=== PATIENT | female | born 1995 | race Caucasian/White ===

== ENCOUNTER 2018-05-27 13:44 | Outpatient (CLI) | payer OTHER ==
--- NOTE | 2018-05-27 15:23 | ULT ---
PELVIC ULTRASOUND: 05/27/2018 HISTORY: Positive . Evaluate size and dates. FINDINGS: Multiple transabdominal and endovaginal sonographic images of the pelvis are obtained. The uterus measures 12.2 cm x 6.7 cm x 8.2 cm. There is a fluid collection within the endometrial ca nal, which contains both a pole and a yolk sac. Cardiac Doppler demonstrates heart tones with a heart rate of 160 beats per minute. [place]-rump length measures 2.06 cm, corresponding to a gestational age by ultrasound of 8 weeks 5 days with an ROSA MARIA of 01/01/2019. Gestational age by l ast menstrual period is 11 weeks 6 days, which does represent a discrepancy. The gestational sac, with respect to the pole, is mildly prominent, but probably within normal limits, but followup is suggested. There are no findings to suggest a subchorionic hemorrhage. The left ovary measures 2.5 cm x 1.6 cm x 2.3 cm and has a normal sonographic appearance on transabdo kimani imaging. The right ovary is visualized on endovaginal imaging and measures 3.1 cm x 1.9 cm x 2 .1 cm. Doppler evaluation of each ovary with spectral analysis and color-flow evaluation suggests ar terial flow in each ovary. No free fluid is seen in the cul-de-sac. IMPRESSION: 1. Single intrauterine gestation with heart tones documented. Estimated gestational age by me asurement of the crown-rump length is 8 weeks 5 days with an ROSA MARIA of 01/01/2019. 2. Mild prominence of the gestational sac with respect to the size of the pole. This is proba katie within normal limits, but follow-up evaluation is recommended. POS: HUEY
== END 2018-05-27 13:45 | disposition home or self-care (01) ==
LOC: SCSULT 13:44
PROVIDERS: ATTEND Family Medicine
DX: Z34.81 Encounter for supervision of other normal pregnancy, first trimester (principal); Z3A.08 8 weeks gestation of pregnancy
CPT/HCPCS: 76856

== ENCOUNTER 2018-08-18 08:29 | Outpatient (CLI) | payer OTHER ==
--- NOTE | 2018-08-18 09:25 | ULT ---
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 COMPARISON: ultrasound dated May 27, 2018 FINDINGS: Number of gestations: Single. Presentation: Cephalic. Placental location: Anterior Previa: No evidence for previa. Cervical length: 3.1 cm DIEGO: 15.3 cm. heart rate: 153 bpm. Biparietal diameter: 4.82cm, 20 weeks 5 days, Not calculated.. Head circumference: 17.62 cm, 20 weeks 1 day, Not calculated. Abdominal circumference: 14.89 cm, 20 weeks and 2 days, Not calculated. Femoral length: 3.38cm, 20 weeks 5 days, Not calculated. Estimated weight: 348 g +/- 51g 0 lbs. 12 oz. +/- 2 ounces, 33rd percentile SURVEY: head: Normal appearing. Cerebellum: Normal appearing. Cisterna magna: Normal appearing. Lateral ventricles: Normal appearing. 4 chamber heart: Normal appearing.. Stomach: Normal appearing. Kidneys: Normal appearing. Cord insertion: Normal appearing. Bladder: Normal appearing. Spine: Normal appearing. Lips and nose: Normal appearing. Extremities: Normal appearing. Three-vessel CORD: Normal appearing. The average gestational age by ultrasound is 20 weeks 4 dayswith estimated due date of January 01 19. The estimated dates by clinical data is 20 weeks 4 dayswith estimated due date of January 01, 2019. IMPRESSION: 1. Single live intrauterine gestation with size and dates as above.
== END 2018-08-18 08:30 | disposition home or self-care (01) ==
LOC: BICULT 08:29
PROVIDERS: ATTEND Nurse Practitioner
DX: O09.92 Supervision of high risk pregnancy, unspecified, second trimester (principal); Z3A.20 20 weeks gestation of pregnancy
CPT/HCPCS: 76805

== ENCOUNTER 2018-09-27 12:14 | Day surgery (SDC) | payer OTHER ==
[2018-09-27 12:53] VITALS: BP 111/66; TEMP 98.4
[2018-09-27 12:54] VITALS: BMI 29.9
--- NOTE | 2018-09-27 15:08 | ULT ---
ULTRASOUND OBSTETRICAL COMPLETE: DATE: 09/27/2018 HISTORY: 23-year-old female in second trimester of with pelvic pain and mild vaginal bleeding. FINDINGS: number: [place] lie: Cephalic Maternal cervix: 3.4 cm. Closed. Placenta: Anterior. No placenta previa or abruption. Amniotic fluid volume: DIEGO = 12 cm heart rate: 155 bpm The following anatomy is visualized, with no evidence of anomalies: Head, cerebellum, cisterna magna, four-chamber heart, stomach, kidneys, cord insertion, and bladder. biometry: Biparietal diameter (BPD): 6.7 cm 27 w 1 d Head circumference (HC): 24.9 cm 27 w 0 d Abdominal circumference (AC): 22.1 cm 26 w 4 d Femur length (FL): 5.0 cm 27 w 0 d Average ultrasound age (AUA): 27 w 0 d Estimated date of delivery (ROSA MARIA): 12/27/2018 Estimated weight (EFW): 982 g +/- 145 g IMPRESSION: 1) Live early 3rd trimester intrauterine gestation. 2) Estimated gestational age of 27 weeks, 0 days 3) cephalic lie.
--- NOTE | 2018-09-28 07:49 | SS ---
DATE OF ADMISSION: 09/27/2018 DATE OF DISCHARGE: 09/27/2018 REGULAR PHYSICIAN: Devora Joseph MD. EVALUATING PHYSICIAN: Broderick Kevin MD. CHIEF COMPLAINT: Cramping, spotting, loose stool at home. HISTORY OF PRESENT ILLNESS: Ms. Richards is a 23-year-old black, 2, para 0-1-0-1 with an estimated date of confinement of 01/01/2019, who presents complaining of intermittent cramping and loose stools over the last 24 hours. She noticed some spotting when she wiped with the tissue today and came to the hospital. Her care has been with Dr. Joseph and has been without significant complications up to this point. PAST OBSTETRICAL HISTORY: Includes vaginal delivery at 34 weeks in [place]. She is currently on Kaitlyn this . PAST MEDICAL HISTORY: None. PAST SURGICAL HISTORY: None. CURRENT MEDICATIONS: 1. vitamins. 2. [place] as above. ALLERGIES: NO KNOWN ALLERGIES. SOCIAL HISTORY: Denies tobacco, alcohol, or drug use. FAMILY HISTORY: Unremarkable. REVIEW OF SYSTEMS: Denies nausea, vomiting, fever, chills, ruptured membranes, or decreased movement. PHYSICAL EXAMINATION: VITAL SIGNS: Vital signs are stable and she is afebrile in triage. GENERAL: She is an extremely pleasant and in no acute distress. ABDOMEN: Soft, nontender, and gravid. heart rate tracing is stable with small accelerations. There are no decelerations. No uterine contractions or uterine activity is seen. Limited ultrasound is done. A fetus consistent with dates with an anterior placenta is seen. There is no evidence of placenta previa. DIEGO is within normal limits. Her cervix is 3.3 cm in length. PELVIC: A sterile speculum exam was then performed. Her cervix is closed and long. There is no blood or discharge seen in the vagina. ASSESSMENT: 1. A 26-2/7 week intrauterine . 2. No evidence of vaginal bleeding or labor at this time. PLAN: The patient will be dismissed to home. She was given complete labor precautions and was told to continue to follow up with Dr. Joseph each week for her Kaitlyn shot. She voiced understanding of her discharge instructions and was sent home in good condition. Job ID: [id number]
== END 2018-09-27 14:35 | disposition home or self-care (01) ==
LOC: L&D/OP 12:14
PROVIDERS: ATTEND Obstetrics & Gynecology
DX: O99.89 Other specified diseases and conditions complicating pregnancy, childbirth and the puerperium (principal); R10.9 Unspecified abdominal pain; R19.7 Diarrhea, unspecified; O26.852 Spotting complicating pregnancy, second trimester; Z3A.26 26 weeks gestation of pregnancy
CPT/HCPCS: 76815; 99283

== ENCOUNTER 2018-10-20 10:28 | Outpatient (CLI) | payer OTHER ==
--- NOTE | 2018-10-20 11:55 | ULT ---
Exam: OB ultrasound follow-up: COMPARISON: 09/27/2018 HISTORY: growth FINDINGS: Single viable intrauterine fetus in vertex presentation. The placenta is anterior. Amniotic fluid wit hin normal limits. heart rate 135 bpm. Cervical length 3.7 cm. anatomy was not addressed at the time of this exam. biometry: BPD 7.5 cm--30 weeks 2 days Head circumference 27.4 cm--30 weeks 0 days Abdominal circumference 23.5 cm--27 weeks 6 days Femur length 5.6 cm--29 weeks 5 days. IMPRESSION: Single viable intrauterine fetus at 29 weeks 4 days with an ROSA MARIA of 01/01/2019. Estimated weight 1281 g. Approximately 2 weeks discrepancy between abdominal circumference and head circumference, statistical ly, still within upper range of normal variability.
== END 2018-10-20 10:29 | disposition home or self-care (01) ==
LOC: BICULT 10:28
PROVIDERS: ATTEND Nurse Practitioner
DX: O09.92 Supervision of high risk pregnancy, unspecified, second trimester (principal); Z3A.29 29 weeks gestation of pregnancy
CPT/HCPCS: 76816

== ENCOUNTER 2018-12-30 05:36 | Inpatient (IN) | payer OTHER ==
[~2018-12-30 05:36] MED LIST: Butorphanol Tartrate 1 MG/ML VIAL SLOW IVP PRN; HYDROcodone/Acetaminophen 5/325 mg Tablet PO PRN; Ibuprofen 800 MG TAB PO PRN; Lidocaine 1% (PF) 30 ML VIAL SC PRN; NS / Oxytocin 40 units/1000ml 1,000 ML IV PRN; NS w/ Oxytocin 10 units 500 ML IV SCH; Ondansetron PF 4 MG/2 ML Vial IVP PRN; Promethazine HCl 25 MG/ML VIAL IM PRN; hydrALAZINE 20 MG/ML VIAL SLOW IVP PRN
[2018-12-30 12:19] VITALS: BMI 31.3
[2018-12-30] MEDS: Lactated Ringer's 1,000 ML IV SCH ×4 (12:20→23:27)
[2018-12-30 13:21] LABS: Hemoglobin 11.1 g/dL (12.0-16.0); Mean Corpuscular HGB CONC 33.5 g/dL (32.0-36.0); Mean Corpuscular Hemoglobin 22.7 pg (27.0-31.0); Mean Corpuscular Volume 67.8 fL (78.0-98.0); Platelet Count 292 thou/uL (130-400); RBC Distribution Width 15.7 % (11.5-14.5); Red Blood Cell (RBC) Count 4.88 mill/uL (4.20-5.40); White Blood Cell (WBC) Count 10.4 thou/uL (4.8-10.8)
[2018-12-30 14:10] LABS: Syphilis Antibody Nonreactive (Nonreactive); Syphilis Antibody Index 0.03 S/CO (<1.00 Non-Reactive)
[2018-12-30 14:11] LABS: HBSAg Index 0.19 S/CO (0-0.99); Hep B Surf Ag Non-Reactive S/CO (NonReactive)
[2018-12-30] MEDS ORDERED: Fentanyl 4 mcg/Bup 0.1% Cadd 100 ML ONE (14:21)
[2018-12-30] MEDS ORDERED: Lidocaine 1.5%/Epinephrine 1:200,000 5 ML AMPUL IJ ONE (14:44)
[2018-12-30] MEDS ORDERED: Bisacodyl 10 MG SUPP PR PRN (17:52)
[2018-12-30] MEDS ORDERED: Milk Of Magnesia 30 ML UDCUP PO PRN (17:52)
[2018-12-30] MEDS ORDERED: Preparation H Ointment 28 GM TUBE PR PRN (17:52)
[2018-12-30] MEDS ORDERED: Lanolin Ointment 7 GM TUBE TOP PRN (17:52)
[2018-12-30] MEDS ORDERED: Ondansetron PF 4 MG/2 ML Vial IVP PRN (17:52)
[2018-12-30] MEDS ORDERED: Adacel (T-DAP) 0.5 ML SYRINGE IM ONE (17:52)
[2018-12-30] MEDS ORDERED: hydrALAZINE 20 MG/ML VIAL SLOW IVP PRN (17:52)
[2018-12-30] MEDS ORDERED: Benzocaine-Menthol 82.5 ML CAN TOP PRN (17:52)
[2018-12-30] MEDS ORDERED: NS / Oxytocin 40 units/1000ml 1,000 ML IV SCH (18:00)
[2018-12-30] MEDS ORDERED: Acetaminophen 325 MG TAB PO PRN ×2 (18:40→21:13)
[2018-12-30] MEDS: Docusate Calcium (SURFAK) 240 MG CAP PO SCH (20:43)
[2018-12-30] MEDS ORDERED: HYDROcodone/Acetaminophen 5/325 mg Tablet PO PRN (21:13)
[2018-12-30] MEDS ORDERED: Ibuprofen 600 MG TAB PO PRN (21:14)
[2018-12-30] MEDS ORDERED: diphenhydrAMINE 25 MG CAP PO PRN (22:06)
[2018-12-31] MEDS: Lactated Ringer's 1,000 ML IV SCH ×3 (02:47→21:29)
[2018-12-31] MEDS: HYDROcodone/Acetaminophen 5/325 mg Tablet PO PRN ×3 (02:54→16:35)
[2018-12-31] MEDS: Ferrous Sulfate 325 MG TAB PO SCH ×2 (08:47→16:35)
[2018-12-31] MEDS: Docusate Calcium (SURFAK) 240 MG CAP PO SCH ×2 (09:27→21:29)
[2018-12-31] MEDS: Prenatal Vitamin 1 TAB PO SCH (09:27)
[2018-12-31] MEDS ORDERED: Bupivacaine HCl 0.25%/Epi 0.0005/PF 10 ML VIAL FS ONE (11:11)
[2018-12-31] MEDS ORDERED: Lidocaine 2% MPF 10 ML AMP (For Epidural Use) ONE (11:11)
[2018-12-31] MEDS: Acetaminophen 325 MG TAB PO PRN (21:29)
[2018-12-31] MEDS: traMADol HCl 50 MG TAB PO PRN (23:08)
[2019-01-01] MEDS: Lactated Ringer's 1,000 ML IV SCH ×2 (03:44→11:22)
[2019-01-01] MEDS: Acetaminophen 325 MG TAB PO PRN (04:34)
[2019-01-01] MEDS: traMADol HCl 50 MG TAB PO PRN (06:44)
[2019-01-01 08:35] VITALS: BP 106/64; TEMP 98.4
[2019-01-01] MEDS: Ferrous Sulfate 325 MG TAB PO SCH (09:15)
[2019-01-01] MEDS: Docusate Calcium (SURFAK) 240 MG CAP PO SCH (09:17)
[2019-01-01] MEDS: Prenatal Vitamin 1 TAB PO SCH (09:17)
--- NOTE | 2019-01-01 12:38 | DN ---
DATE OF PROCEDURE: 12/30/2018 PREOPERATIVE DIAGNOSES: 1. A 23-year-old female, G2, P0-1-0-1, with a history of delivery, status post Kaitlyn progesterone therapy, presents at 39 weeks and 5 days for induction of labor. 2. Group B Streptococcus negative. 3. Artificial rupture of membranes with clear fluid at 1230 hours. POSTOPERATIVE DIAGNOSES: 1. A 23-year-old female, G2, P0-1-0-1, with a history of delivery, status post [place] progesterone therapy, presents at 39 weeks and 5 days for induction of labor. 2. Group B Streptococcus negative. 3. Artificial rupture of membranes with clear fluid at 1230 hours. 4. Precipitous live of male infant, weighing 8 pounds even with Apgars of 9 and 9 at 1 and 5 minutes respectively. ESTIMATED BLOOD LOSS: 100 mL. ANESTHESIA: Epidural. CLINICAL HISTORY: This patient is a 23-year-old female who was seen at [facility] on a regular basis for her care. Her care was complicated by history of a delivery at 35 weeks gestation. She was started on Kaitlyn injections and completed those through 36 weeks. She had advanced cervical dilation and was noted to be 3.5 cm, 60% effaced, and -3 station at presentation. She had irregular contractions and a category 1 tracing. An amniotomy was performed with clear fluid and the patient was continued with monitoring. She eventually became uncomfortable and requested an epidural for maternal analgesia. This gave adequate anesthesia for the remainder of her labor course. She was checked a few hours afterwards and was noted to be 6 cm, then 9 cm, and comfortable. The nursing staff repositioned the patient on the peanut ball and shortly thereafter, she noted significant pressure in her rectum and upon looking, the head was delivered. DESCRIPTION OF PROCEDURE: Per records and staffing notes, the head delivered spontaneously on its own followed by the remainder of the body. The laborist was able to make it for the delivery of the placenta and details should be recorded in his note. Estimated blood loss was 100 mL, and both and mother recovered well. There were only periurethral lacerations x2 that were not bleeding at the time of delivery and not repaired. The infant was suctioned at the mouth and nose and had an Apgars recorded at 9 and 9 at 1 and 5 minutes respectively. Per the records, all needle, sponge, lap, and instrument counts were correct x2 at the end of the procedure, and the patient was allowed to recover in her labor room with her . Again, the infant was a live born male, weighing 8 pounds 0 ounces with Apgars of 9 and 9 at 1 and 5 minutes respectively. There were no other issues surrounding this delivery. Job ID: [id number] MTDD
--- NOTE | 2019-01-04 15:32 | DN ---
DATE OF PROCEDURE: 12/30/2018 Ms. Kim Richards is a 23-year-old female, patient of Dr. Devora Joseph, who delivered a male infant on 12/30/2018 at 1711 hours by vaginal delivery. Apgars were 9 and 9. Weight 8 pounds. Placenta delivered spontaneously followed by Pitocin infusion. There were no lacerations. Quantitative blood loss was [address] Garcia was the delivering physician. Counts were correct in the immediate . Job ID: [id number]
== END 2019-01-01 12:30 | disposition home or self-care (01) | DRG 806 ==
LOC: L&D 05:36 → 3SW 21:07
PROVIDERS: ADMIT Obstetrics & Gynecology; ATTEND Obstetrics & Gynecology
PROC: 10E0XZZ Delivery of Products of Conception, External Approach (ICD-10-PCS; principal; 2018-12-30)
PROC: 10907ZC Drainage of Amniotic Fluid, Therapeutic from Products of Conception, Via Natural or Artificial Opening (ICD-10-PCS; 2018-12-30)
PROC: 3E0P7VZ Introduction of Hormone into Female Reproductive, Via Natural or Artificial Opening (ICD-10-PCS; 2018-12-30)
PROC: 3E033VJ Introduction of Other Hormone into Peripheral Vein, Percutaneous Approach (ICD-10-PCS; 2018-12-30)
DX: O62.3 Precipitate labor (principal); O99.12 Other diseases of the blood and blood-forming organs and certain disorders involving the immune mechanism complicating childbirth; Z37.0 Single live birth; Z3A.39 39 weeks gestation of pregnancy; D56.1 Beta thalassemia; O71.82 Other specified trauma to perineum and vulva
CPT/HCPCS: 36415; 36416; 85027; 85461; 86780; 86850; 86900; 86901; 87340; 90384; 96372; J2001; J2405; J2590; J3490

== ENCOUNTER 2020-07-31 05:07 | Emergency (ER) | payer OTHER, SELFPAY | END 2020-07-31 06:16 | disposition home or self-care (01) | LOC: ERS 05:07 | DX: H61.21 Impacted cerumen, right ear (principal) | CPT/HCPCS: 69209 ==

== ENCOUNTER 2021-01-29 13:49 | Outpatient (CLI) | payer OTHER | END 2021-01-29 13:50 | disposition home or self-care (01) | LOC: BICULT 13:49 | PROVIDERS: ATTEND Family Medicine | DX: O09.892 Supervision of other high risk pregnancies, second trimester (principal); Z3A.25 25 weeks gestation of pregnancy | CPT/HCPCS: 76805 ==